=== PATIENT | male | born 1955 | race Caucasian/White ===

== ENCOUNTER → 2020-09-12 15:29 | Outpatient (CLI) | payer BC, SELFPAY ==
--- NOTE | ~2020-09-12 | CT_ITS ---
EXAMINATION: CT chest wo con EXAM DATE: 09/12/2020 16:00 INDICATION: Abnormal chest x ray. TECHNIQUE: Spiral CT of the chest without contrast. Axial, coronal and sagittal images were reviewe d. Coronal maximum intensity pixel images of chest reviewed. The dose-length product (DLP) for this examination was 529.80 mGy-cm. The exposure was tailored according to patient size (auto mA exposur e control), and iterative reconstruction (ASIR) was used as additional dose reduction technique. The re is no prior study for comparison. FINDINGS: There is an 7.5 mm nodule in the left upper lobe laterally. There is lingular 4 mm nodule. Mild to moderate hyperinflation. Trace pericardial effusion. Tracheobronchial tree is patent. Th ere is no mediastinal, hilar or axillary lymphadenopathy. There is no pneumothorax. Heart normal in size. No evidence of coronary arterial calcification. There is cholelithiasis. Punctate right s uperior calyceal stone. There is moderate thoracic spondylosis without osteoblastic or osteolytic le sions identified. Large lower thoracic bridging endplate osteophytes. IMPRESSION: Several pulmonary nodules, largest left upper lobe laterally at 7.5 mm. Comparison with p rior examination could be made if available. Otherwise, follow-up low dose noncontrast chest CT is r ecommended in 6 months. Reviewed, dictated and finalized at location A. IMPRESSION: Several pulmonary nodules, largest left upper lobe laterally at 7.5 mm. Comparison with prior examination could be made if available. Otherwise, follow-up low dose noncontrast chest CT is recommended in 6 months.
== END ==
PROVIDERS: Visit Provider Internal Medicine
DX: R93.89 Abnormal findings on diagnostic imaging of other specified body structures (principal); R91.8 Other nonspecific abnormal finding of lung field
CPT/HCPCS: 71250

== ENCOUNTER 2021-03-14 19:54 | Emergency (ER) | payer BC, SELFPAY ==
--- NOTE | ~2021-03-14 | CT_ITS ---
EXAMINATION: CT abdomen pelvis w con DATE: 03/14/2021 20:48 INDICATION: Epigastric pain TECHNIQUE: Computed tomography (CT) of the abdomen and pelvis was performed with 100 cc Omnipaque 350 intravenous contrast. The dose-length product was 824.72 mGy-cm. Automated exposure control and iter ative reconstruction technique were employed. COMPARISON: None. FINDINGS: Lung bases are unremarkable. Heart size normal. No significant pleural effusion. There are gallstones with gallbladder wall thickening and pericholecystic fatty infiltration. There is mild int rahepatic biliary dilatation. Findings suspicious for cholecystitis. The spleen, pancreas, adrenal glands are unremarkable. There are subcentimeter hypodensities of the k idneys, most likely benign cysts. There are nonobstructing right renal stones. Small fat-containing u mbilical hernia. Colonic diverticulosis without evidence for diverticulitis. Normal appendix. Mildly enlarged inguinal lymph nodes with peripheral enhancement, likely reactive. Mild lumbar spondylosis. IMPRESSION: 1. Constellation of gallbladder findings, consistent with cholecystitis. Correlate clinically. 2: Mildly enlarged inguinal lymph nodes with enhancement, likely reactive. 3: Nonobstructing right nephrolithiasis. Reviewed, dictated and finalized at location A. IMPRESSION: 1. Constellation of gallbladder findings, consistent with cholecystitis. Correl ate clinically. 2: Mildly enlarged inguinal lymph nodes with enhancement, likely reactive. 3: Nonobstructing right nephrolithiasis.
[2021-03-14 19:58] VITALS: BP 169/98; PULSE 82; RESP 18; TEMP 36.6; O2SAT 100
[2021-03-14 20:22] LABS: Basophils Absolute Auto 0.1 K/mm3 (0.0-0.1); Basophils Percent Auto 0.7 % (0.2-1.2); Eosinophils Absolute Auto 0.1 K/mm3 (0-0.3); Eosinophils Percent Auto 0.6 % (0-4.4); Hematocrit 46.7 % (42.0-52.0); Hemoglobin 15.4 g/dL (14.0-18.0); Immature Granulocyte Absolute 0.02 K/mm3 (0.00-0.031); Immature Granulocyte Percent A 0.2 % (0-0.5); Lymphocytes Absolute Auto 2.05 K/mm3 (0.9-3.2); Lymphocytes Percent Auto 21.8 % (18.3-44.2); Mean Corpuscular Hemoglobin 26.5 pg (26-34); Mean Corpuscular Volume 80.2 fl (80-100); Mean Platelet Volume 9.4 fl (7.4-10.4); Monocytes Absolute Auto 0.7 K/mm3 (0.1-0.6); Monocytes Percent Auto 7.7 % (2.6-8.5); Neutrophils Absolute Auto 6.5 K/mm3 (1.3-6.7); Platelet Count Result 270 k/mm3 (150-375); Red Blood Count 5.82 M/mm3 (4.6-6.20); White Blood Count 9.4 K/mm3 (4.5-10.0)
[2021-03-14] MEDS: MORPHINE SULFATE (*CRX) 4 MG/ML INJ IV PUSH ×2 (20:22→22:46)
[2021-03-14] MEDS: ONDANSETRON INJ 4 MG/2 ML VIAL IV PUSH (20:22)
[2021-03-14 20:27] LABS: Alanine Aminotransferase 20 U/L (4-50); Albumin Level 4.7 g/dL (3.5-5.1); Alkaline Phosphatase 70 U/L (38-126); Anion Gap 7 mmol/L (8-16); Aspartate Amino Transferase 28 U/L (17-59); Bilirubin,Total 0.3 mg/dL (0.2-1.3); Blood Urea Nitrogen 12 mg/dL (9-20); Calcium 9.2 mg/dL (8.4-10.2); Carbon Dioxide 33 mmol/L (22-30); Chloride 103 mmol/L (98-107); Estimated CRCL calculation 81 ml/min; Estimated Glomerular Filt Rate > 60; Glucose 191 mg/dL (75-110); Lipase 120 U/L (23-300); Potassium 3.8 mmol/L (3.4-5.0); Sodium 143 mmol/L (137-145)
--- NOTE | 2021-03-14 20:36 | PC.NURSE ---
pt to CT at this time
[2021-03-14 20:42] LABS: Add Urine Microscopic? YES; Appearance Urine Cloudy (Clear); Bilirubin Urine Negative (Negative); Blood Urine 1+ (Negative); Calcium Oxalate Crystals Urine Present /hpf; Color Urine Yellow (Yellow); Glucose Urine UA Negative (Negative); Ketones Urine Negative (Negative); Leukocyte Esterase Ur Negative LEU/UL (Negative); Mucus Urine Rare /lpf; Nitrate Urine Negative (Negative); Protein Urine 1+ mg/dL (Negative); Specific Grav Ur 1.024 (1.001-1.035); Urobilinogen Urine Negative mg/dL (<2.0); WBC Urine 0-3 /hpf
[2021-03-14 21:19] VITALS: BP 161/89; PULSE 82; RESP 14; O2SAT 96
--- NOTE | 2021-03-14 21:46 | ED.ABDPAIN ---
HPI - Abdominal Pain General Chief Complaint: Abdominal Pain Stated Complaint: epigastric pain Time Seen by Provider: 03/14/21 20:05 History of Present Illness HPI narrative: Patient is a 65-year-old male who presents ER with epigastric pain intermittent over the last month. Worsens when he eats. Radiates to his back. Can last up to 6 hours at a time. Occasionally associated with nausea. No fevers or chills or sweats. Pain is been persistent throughout the day and he did not want to eat tonight so opted to come in for evaluation. Related Data Home Medications Medication Instructions Recorded Confirmed lamotrigine 03/14/21 03/14/21 metformin mg 03/14/21 Allergies Allergy/AdvReac Type Severity Reaction Status Date / Time No Known Allergies Allergy Verified 03/14/21 20:01 Review of Systems Review of Systems: All systems reviewed & are unremarkable except as noted in HPI and below Constitutional: Constitutional: Denies chills and Denies fever(s) Cardiovascular: Cardiovascular: Denies chest pain and Denies radiating jaw, neck or arm pain Gastrointestinal: Gastrointestinal: Reports abdominal pain, Denies bloating, Denies constipation, Reports nausea and Denies vomiting PMFSH Past Medical History Medical History (Updated 03/14/21 @ 22:50 by Ralf Ballesteros MD) Diabetes Seizure disorder Surgical History Surgical History (Updated 03/14/21 @ 21:49 by Ralf Ballesteros MD) No history of previous surgery Family History Family History (Updated 06/18/16 @ 23:19 by DOCTOR UNKNOWN) Father Family history of diabetes mellitus in first degree relative Family history of heart disease in male family member before age 55 Social History Social History Alcohol intake: never Gender identity (if verbalized by the patient): Male Exam Narrative: Exam Narrative: GENERAL: Well-appearing, well-nourished, and in no acute distress. HEAD: Normocephalic, atraumatic. ENT: Mucous membranes moist. CHEST: Clear to auscultation. No respiratory distress. HEART: Regular rate and rhythm. Normal peripheral pulses. ABDOMEN: Soft, nontender, nondistended EXTREMITIES: Normal range of motion. No edema. SKIN: Warm, dry, no rash. NEURO: Alert and oriented x3. PSYCH: Normal mood and affect. Course Course Emergency Course: Discussed case with Dr. Sharma. Patient will be discharged home on Cipro twice daily, with Ipava for pain, and low-fat diet. Patient should call Tuesday to schedule follow-up this week. Patient is understanding of this plan and agreeable. He has been educated on return precautions and verbalized understanding. Vital Signs Vital signs: Vital Signs Temperature 97.8 F 03/14/21 19:58 Pulse Rate 82 03/14/21 19:58 Respiratory Rate 18 03/14/21 19:58 Blood Pressure 169/98 H 03/14/21 19:58 Pulse Oximetry 100 03/14/21 19:58 Temperature 97.8 F 03/14/21 19:58 Pulse Rate 82 03/14/21 21:19 Respiratory Rate 14 03/14/21 21:19 Blood Pressure 161/89 H 03/14/21 21:19 Pulse Oximetry 96 03/14/21 21:19 MDM - Abdominal Pain Lab Data Result diagrams: 03/14/21 20:13 03/14/21 20:13 Labs: Lab Results 03/14/21 03/14/21 03/14/21 Range/Units 20:13 20:13 20:25 WBC 9.4 (4.5-10.0) K/mm3 RBC 5.82 (4.6-6.20) M/mm3 Hgb 15.4 (14.0-18.0) g/dL Hct 46.7 (42.0-52.0) % MCV 80.2 (80-100) fl MCH 26.5 (26-34) pg MCHC 33.0 (32-36) g/dl RDW 13.0 (11.5-14.5) % Plt Count 270 (150-375) k/mm3 MPV 9.4 (7.4-10.4) fl Immature Gran % (Auto) 0.2 (0-0.5) % Neut % (Auto) 69.0 (45.5-73.1) % Lymph % (Auto) 21.8 (18.3-44.2) % [place] % (Auto) 7.7 (2.6-8.5) % Eos % (Auto) 0.6 (0-4.4) % Baso % (Auto) 0.7 (0.2-1.2) % Lymph # (Auto) 2.05 (0.9-3.2) K/mm3 [place] # (Auto) 0.7 H (0.1-0.6) K/mm3 Eos # (Auto) 0.1 (0-0.3) K/mm3 Baso # (Auto) 0.1 (0.0-0.1) K/mm3 Abs Immat Gran (auto) 0
[2021-03-14 23:07] VITALS: BP 172/73; PULSE 80; RESP 16; O2SAT 99
[2021-03-14] MEDS: CIPROFLOXACIN 500 MG TAB PO (23:07)
== END 2021-03-14 23:09 | disposition home or self-care (01) ==
PROVIDERS: Emergency Provider Emergency Medicine; PCP Internal Medicine
DX: K81.9 Cholecystitis, unspecified (principal); E11.9 Type 2 diabetes mellitus without complications; G40.909 Epilepsy, unspecified, not intractable, without status epilepticus; N20.0 Calculus of kidney; Z79.84 Long term (current) use of oral hypoglycemic drugs
CPT/HCPCS: 36415; 74177; 80053; 81001; 83690; 85025; 96374; 96375; 96376; 99284; A9270; J2270; J2405; Q9967

== ENCOUNTER → 2021-03-16 15:17 | Outpatient (CLI) | payer BC, SELFPAY ==
--- NOTE | ~2021-03-16 | CT_ITS ---
EXAMINATION:CT diagnostic chest wo con DATE: 03/16/2021 15:31 INDICATION: Pulmonary nodules. TECHNIQUE: Computed tomography (CT) of the chest was performed without intravenous contrast. Automate d exposure control and iterative reconstruction technique were employed. The dose-length product (DLP ) was 188.83 mGy-cm. COMPARISON: CT abdomen and pelvis 07/14/2021, chest CT 09/12/2020 FINDINGS: The lungs demonstrate mild atelectasis. There is a 5 mm nodule in the lingula, stable from 09/12/2020. There is an 8 mm nodule in the left upper lobe, stable from 09/12/2020. No pleural effusi on. The heart size is normal. There is a small pericardial effusion. There are gallstones in the gall bladder, which is normal in size. Gallbladder wall thickening is noted. There is mild thoracic spondy losis. IMPRESSION: 1. Stable pulmonary nodules, likely benign. 2. Small pericardial effusion. 3. Cholelithiasis. Gallbladder wall thickening may be secondary to acute or chronic cholecystitis, in terstitial edema, or chronic liver disease. Reviewed, dictated and finalized at location A. IMPRESSION: 1. Stable pulmonary nodules, likely benign. 2. Small pericardial effusion. 3. Cholelithiasis. Gallbladder wall thickening may be secondary to acute or chr onic cholecystitis, interstitial edema, or chronic liver disease.
== END ==
PROVIDERS: PCP Internal Medicine; Visit Provider Internal Medicine
DX: R91.8 Other nonspecific abnormal finding of lung field (principal); K80.20 Calculus of gallbladder without cholecystitis without obstruction; I31.3 Pericardial effusion (noninflammatory)
CPT/HCPCS: 71250

== ENCOUNTER 2021-03-19 10:24 | Outpatient (CLI) | payer BC, SELFPAY ==
--- NOTE | 2021-03-19 10:30 | ECG_ITS ---
Measurements Intervals [place] Rate: 73 P: -11 RI: 169 QRS: -11 QRSD: 85 T: 3 QT: 376 QTc: 416 Interpretive Statements SINUS RHYTHM BORDERLINE R WAVE PROGRESSION, ANTERIOR LEADS INFERIOR INFARCT, AGE INDETERMINATE BASELINE ARTIFACT- I, II, III, AVR, AVL, AVF ABNORMAL ECG Electronically Signed On 03-19-2021 10:58:20 CDT by Estevan Garcia D.O.
[2021-03-19 11:48] LABS: Alanine Aminotransferase 17 U/L (4-50); Albumin Level 3.9 g/dL (3.5-5.1); Alkaline Phosphatase 61 U/L (38-126); Amylase 53 U/L (30-110); Aspartate Amino Transferase 21 U/L (17-59); Bilirubin,Total 0.2 mg/dL (0.2-1.3); Lipase 86 U/L (23-300)
== END 2021-03-19 10:25 | disposition home or self-care (01) ==
LOC: ANHSURGERY 10:26
PROVIDERS: PCP Internal Medicine; Visit Provider Surgery
DX: K80.10 Calculus of gallbladder with chronic cholecystitis without obstruction (principal); E11.9 Type 2 diabetes mellitus without complications; Z01.818 Encounter for other preprocedural examination; R94.31 Abnormal electrocardiogram [ECG] [EKG]
CPT/HCPCS: 36415; 80076; 82150; 83690; 86850; 86900; 86901; 93005

== ENCOUNTER → 2021-03-21 02:03 | Outpatient (CLI) | payer BC, SELFPAY ==
[2021-03-21 19:16] LABS: SARS-CoV-2 RNA PCR Negative
== END ==
PROVIDERS: PCP Internal Medicine; Visit Provider Surgery
DX: Z01.812 Encounter for preprocedural laboratory examination (principal); Z20.822 Contact with and (suspected) exposure to COVID-19
CPT/HCPCS: C9803; U0003; U0005

== ENCOUNTER 2021-03-24 01:03 | Day surgery (SDC) | payer BC, SELFPAY ==
[2021-03-18 14:38] VITALS: BMI 29.9
[2021-03-24] VITALS (7 sets, daily range): BP systolic 108–156; BP diastolic 58–86; PULSE 59–80; RESP 14–20; TEMP 36.2–36.3; O2SAT 96–100
[2021-03-24] MEDS: LACTATED RINGERS 1,000 ML 30 ML IV CONT ×2 (09:01→12:23)
[2021-03-24] MEDS: KETOROLAC 15 MG/ML VIAL (*BKC) IV PUSH (09:03)
[2021-03-24] MEDS: ACETAMINOPHEN 500 MG TABLET 1000 MG PO (09:03)
--- NOTE | 2021-03-24 09:20 | P.PNAN_ITS ---
Anes - Initial Pre Proc Eval Procedure: Operation Date: 03/24/21 10:30 Proposed Procedures p Laparoscopic Cholecystectomy - David Sharma MD Date/Time: 03/24/21 09:20 Surgeon: David Sharma MD Pre Op Diagnosis: cholecystitis with stones Patient Data Age: 65 Gender: M Height: 1.83 m Weight: 99 kg Last Vital Signs Temp 36.2 C L 03/24/21 08:38 Pulse 80 03/24/21 08:38 Resp 18 03/24/21 08:38 BP 109/81 03/24/21 08:38 Pulse Ox 99 03/24/21 08:38 Allergies Allergy/AdvReac Type Severity Reaction Status Date / Time No Known Allergies Allergy Verified 03/18/21 14:36 Home Medications Medication Instructions Recorded Confirmed Type ciprofloxacin HCl 500 mg PO Q12H #20 tablet 03/14/21 03/24/21 Rx hydrocodone-acetaminophen 1 tablet PO Q6H PRN #20 tablet 03/14/21 03/24/21 Rx lamotrigine 25 mg PO BID 03/14/21 03/24/21 History metformin 500 mg PO BID 03/14/21 03/24/21 History levetiracetam 1,500 mg PO BID 03/18/21 03/24/21 History Patient hx anesthesia problems: none Family hx anesthesia problems: none PMFSH Past Medical History Medical History (Updated 03/24/21 @ 09:20 by Jesus Wagner DO) Diabetes Seizure disorder last one 07/2014 Surgical History Surgical History History of repair of rotator cuff History of tonsillectomy Family History Family History Father Family history of diabetes mellitus in first degree relative Family history of heart disease in male family member before age 55 Mother Heart disease Social History Social History (Updated 03/17/21 @ 11:03 by Dinora Polanco CMA) Smoking status: Never smoker Alcohol intake: never Substance use: never Substance use type: does not use Living arrangements: with family Additional occupation/education comments: [employer] Gender identity (if verbalized by the patient): Male Spiritual care concerns: No Anes - Eval Final PreProcedure Day of Procedure 03/24/21 09:20 Patient weight: overweight Heart: regular rate and rhythm Lungs: clear to auscultation and normal air movement Airway: Mallampati scale class III Neurological: alert and oriented Last oral intake: >/= 8 hours ASA classification: III Emergent: no Anesthetic plan: proceed Anesthesia type and monitoring: general ETT and standard monitoring Informed Consent: The patient's anesthetic plan and its attendant risks and bene fits were discussed with the patient/family/POA. Questions were solicited and answers provided to the satisfaction of the patient/family/POA.
[2021-03-24 10:06] LABS: Glucose Point of Care 125 (65-105)
--- NOTE | 2021-03-24 10:33 | WPDHPUPDATE1 ---
History and Physical Update Update Date/Time: 03/24/21 10:33 History and Physical has been reviewed, including an updated exam of the patient. There are NO changes in the patient's condition. Risks, benefits, and alternatives have been discussed and questions answered. Patient agrees to proceed with procedure.
[2021-03-24] MEDS: ceFAZolin 2 GM/D5W 50 ML 2 GM/50 ML BAG IVPB (10:41)
[2021-03-24] MEDS: BUPIVACAINE/EPINEPHRINE 0.5% 30 ML VIAL INFILTRATE (11:11)
--- NOTE | 2021-03-24 12:19 | PM.PROC ---
Procedure Note - Detailed Date of procedure: 03/24/21 Pre-op diagnosis: cholecystitis with stones Cholecystitis with gallstones Post-op diagnosis: other (Acute and chronic cholecystitis with gallstones, cystic duct obstruction, hydrops) Procedure performed: Laparoscopic cholecystectomy Description of procedure: The patient was taken to surgery and induced into general anesthesia. The abdomen was prepped and draped. Trocars were placed in the usual fashion using 0.5% Marcaine with epinephrine and applied Medical optical trocars. A 5 millimeter camera was used. The gallbladder was noted to have a thickened wall and be quite distended consistent with chronic cholecystitis. It was partially intrahepatic. The gallbladder was decompressed with a laparoscopic aspirator. White bile or mucus consistent with hydrops of the gallbladder drained from the gallbladder lumen. The gallbladder was retracted anterosuperiorly. Adhesions to the gallbladder were taken down so that the cholecystohepatic triangle was exposed. There was a lot of edema consistent with acute inflammation in the area of the cholecystohepatic triangle. There was a large stone in the neck of the gallbladder and evidence of stones actually in the cystic duct. Traction was placed on the infundibulum. The cystic duct and cystic artery were dissected out very clearly. There was a lot of inflammation in this dissection. Cautery was used for hemostasis. There was clearly a stone in the cystic duct causing obstruction. The gallbladder was dissected off the liver at its lower 3rd. During this dissection, a small opening was made in the wall of the gallbladder and pasty almost claylike stone material was noted. This was suctioned away. Further dissection was then carried out. Critical view was achieved. We securely clipped and divided cystic artery. The cystic duct required more attention. It was quite distended and as I mentioned, there was stone material in the middle portion of the cystic duct. After dissecting it out through most of its length, I placed a clip just beyond the gallbladder at the top of the cystic duct. I then used cystic duct scissors and opened the cystic duct just above the area of the stone. The stones in the cystic duct were the same pasty thick material that we saw in the lumen of the gallbladder. This material was able to be milked out and suctioned out of the cystic duct. It appeared there were no additional stones or other material in the more distal cystic duct. Once the stones were removed, I divided the cystic duct near the gallbladder. I then used a Vicryl endoloop. I pulled up the top of the cystic duct and ligated it near its junction with the common bile duct to occlude it. The cystic duct was too large to simply clip it. This worked well and the cystic duct appeared to be well ligated without concern for leakage. The gallbladder was then further retracted so that the peritoneal attachments to the liver could be divided. This was likewise a difficult dissection as there was a lot of acute and chronic inflammation in the wall of the gallbladder. No additional entry into the gallbladder was made and we tried to keep the previously made opening occluded during the dissection so no stone spillage occurred. We progressed up towards the fundus of the gallbladder and eventually free the gallbladder from the liver entirely. The gallbladder fossa had some bleeding which was controlled with cautery. Once the gallbladder was freed entirely, it was placed in an Endo-Catch bag and retrieved through the 10 11 epigastric trocar site. The epigastric trocar was then replaced. We reviewed the right upper quadrant. It was irrigated and suctioned repeatedly. Some additional cautery on the gallbladder fossa was used to achieve good hemostasis. We then continued irrigating and suctioning the right upper quadrant and gallbladder fossa. All looked good with no evidence of bleeding
[2021-03-24 12:40] LABS: Glucose Point of Care 207 (65-105)
== END 2021-03-24 14:35 | disposition home or self-care (01) ==
PROVIDERS: PCP Internal Medicine; Visit Provider Surgery
PROC: 0FT44ZZ Resection of Gallbladder, Percutaneous Endoscopic Approach (ICD-10-PCS; CPT 47562; principal; 2021-03-24 10:30)
DX: K80.13 Calculus of gallbladder with acute and chronic cholecystitis with obstruction (principal); K82.1 Hydrops of gallbladder; E11.9 Type 2 diabetes mellitus without complications; Z79.84 Long term (current) use of oral hypoglycemic drugs; G40.909 Epilepsy, unspecified, not intractable, without status epilepticus; E66.3 Overweight; Z68.29 Body mass index [BMI] 29.0-29.9, adult
CPT/HCPCS: 47562; 82948; 88304; A9270; C1713; J0690; J1100; J1885; J2250; J2405; J2704; J2710; J3010; J7120

== ENCOUNTER 2021-09-29 16:46 | Outpatient (CLI) | payer BC, SELFPAY ==
--- NOTE | ~2021-09-29 | MR_ITS ---
EXAMINATION: MR humerus RT wo con DATE: 09/29/2021 17:56 INDICATION: Right upper arm pain. TECHNIQUE: Magnetic resonance imaging (MRI) of the right humerus was performed without intravenous co ntrast. Sequences included axial, coronal, and sagittal T1-weighted FSE and STIR FSE. COMPARISON: None. FINDINGS: Bone alignment is normal. No fracture. There is severe osteoarthritis of glenohumeral joint and acromioclavicular joint. There are suture anchors in right humeral head. Proximal biceps tendon is in bicipital groove. The upper arm musculature is normal. There is no abnormal mass. There is a sk in marker anterior to the proximal humeral diaphysis. There is no abnormality in this area. IMPRESSION: 1. No abnormality in the area of the skin marker anterior to the proximal humeral diaphysis. 2. 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 Reviewed, dictated and finalized at location A. [facility] RACER IMPRESSION: 1. No abnormality in the area of the skin marker anterior to the proximal humer al diaphysis. 2. 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
== END 2021-09-29 16:47 | disposition home or self-care (01) ==
LOC: ANHIMG 16:51
PROVIDERS: PCP Internal Medicine; Visit Provider Internal Medicine
DX: M19.011 Primary osteoarthritis, right shoulder (principal)
CPT/HCPCS: 73218

== ENCOUNTER → 2021-12-28 13:35 | Outpatient (CLI) | payer BC, SELFPAY ==
--- NOTE | ~2021-12-28 | XR_ITS ---
EXAMINATION: XR cervical spine 4-5V DATE: 12/28/2021 14:10 INDICATION: Cervical spine pain. TECHNIQUE: 6 views of cervical spine were obtained. COMPARISON: None. FINDINGS: There is 7 degrees levocurvature of cervical spine. There is 2 mm retrolisthesis of C3 on C 4. There is mild chronic anterior wedging of C6 vertebral body. There is moderately decreased disc he ight at C3-C4 and C5-C6 and severely decreased disc height at C6-C7. There is severe bilateral uncove rtebral joint osteoarthritis at C3-C4, C5-C6, and C6-C7. There is multilevel mild to moderate facet j oint osteoarthritis. On the right, there is moderate neural foraminal stenosis at C3-C4 and mild neur al foraminal stenosis at C5-C6 and C6-C7. On the left, there is mild neural foraminal stenosis at C3- C4 and C5-C6 and moderate neural foraminal stenosis at C6-C7 and C7-T1. There is mild central canal s tenosis at C3-4 and C6-C7. No prevertebral soft tissue swelling. IMPRESSION: 1. Severe cervical spondylosis. Reviewed, dictated and finalized at location E. ER
--- NOTE | ~2021-12-28 | XR_ITS ---
EXAMINATION: XR thoracic spine 2V DATE: 12/28/2021 14:10 INDICATION: Thoracic back pain. TECHNIQUE: 2 views of thoracic spine were obtained. COMPARISON: None. FINDINGS: There is 4 degrees dextrocurvature of thoracic spine. There is mild chronic anterior wedgin g of multiple vertebral bodies in mid and lower thoracic spine. There is mildly decreased disc height at multiple levels in mid and lower thoracic spine. There are endplate osteophytes at most levels. S urgical clips in the right upper quadrant are likely from cholecystectomy. IMPRESSION: 1. Mild thoracic spondylosis. Reviewed, dictated and finalized at location E. INE SPECIALIST
== END ==
DX: M47.894 Other spondylosis, thoracic region (principal); M47.892 Other spondylosis, cervical region
CPT/HCPCS: 72050; 72070

== ENCOUNTER 2024-09-04 09:00 | Outpatient (CLI) | payer MEDICARE, SELFPAY ==
--- NOTE | ~2024-09-04 | PE_ITS ---
EXAMINATION: PET skull to mid thigh DATE: 09/04/2024 12:17 INDICATION: Solitary nodule of lung. TECHNIQUE: Blood glucose level was 135 mg/dL. 7.838 mCi of 18-fluorodeoxyglucose (18-FDG) was adminis tered i.v. Low dose computed tomography (CT) images were acquired from the base of the brain to the p roximal thighs for attenuation correction and anatomic localization. Automated exposure control was e mployed. Dose-length product (DLP) was 1190 mGy-cm. Positron emission tomography (PET) images were ac quired in the same distribution. COMPARISON: Chest CT 03/16/2021 FINDINGS: Head/neck: There are no pathologically enlarged lymph nodes. There is a 14 mm nodule left thyroid lob e with maximum SUV of 5.6. Chest: There is mild atelectasis in the lungs. There is a 5 mm nodule in lingula without increased ac tivity, stable from 03/16/2021, likely benign. There is an 8 mm nodule in left upper lobe with maximum SUV of 1.3, stable from 03/16/2021, likely benign. No pleural effusion. The heart size is normal. No pericardial effusion. There are suture anchors in right humeral head. Abdomen/pelvis/proximal thighs: The liver and spleen are normal. There are changes of cholecystectomy . The pancreas, adrenal glands, and kidneys are normal. The prostate is mildly enlarged. There are no dilated loops of bowel. The appendix is normal. There are no pathologically enlarged lymph nodes. Th ere is no free intraperitoneal fluid. There is no osseous malignancy. IMPRESSION: 1. Benign pulmonary nodules. 2. Left thyroid nodule with increased activity, which may be benign or malignant. Ultrasound-guided f ine-needle aspiration is recommended. Reviewed, dictated and finalized at location A. IMPRESSION: 1. Benign pulmonary nodules. 2. Left thyroid nodule with increased activity, which may be benign or malignan t. Ultrasound-guided fine-needle aspiration is recommended.
[2024-09-04 09:49] LABS: Glucose Point of Care 135 mg/dl (65-105)
== END 2024-09-04 09:01 | disposition home or self-care (01) ==
LOC: ANHIMG 09:11
PROVIDERS: PCP Internal Medicine; Visit Provider Internal Medicine
DX: R91.8 Other nonspecific abnormal finding of lung field (principal); E04.1 Nontoxic single thyroid nodule; R91.1 Solitary pulmonary nodule
CPT/HCPCS: 78815; A9552

== ENCOUNTER 2024-10-17 12:28 | Outpatient (CLI) | payer MEDICARE, SELFPAY ==
--- NOTE | ~2024-10-17 | US_ITS ---
EXAMINATION: US FNA w image guidance DATE: 10/17/2024 13:22 INDICATION: Nontoxic single thyroid nodule. TECHNIQUE: The procedure and its benefits and risks were discussed with the patient. Risks specifically discusse d included bleeding. The patient verbalized understanding of the risks and agreed to proceed. The nec k was prepped and draped in the usual sterile manner. 1% lidocaine was used for local anesthesia. 7 passes were made with a 25G needle into the lesion under ultrasound guidance. There were no immedia te complications. FINDINGS: Grayscale ultrasound images demonstrate needles advanced into a 2.1 cm left thyroid nodule for biopsy . IMPRESSION: 1. Ultrasound-guided fine needle aspiration of a left thyroid nodule. Reviewed, dictated and finalized at location A. TENANCE PAINTER
== END 2024-10-17 12:29 | disposition home or self-care (01) ==
PROVIDERS: PCP Internal Medicine; Visit Provider Internal Medicine
DX: E04.1 Nontoxic single thyroid nodule (principal)
CPT/HCPCS: 10005; 88172; 88173; 88177; 88305